=== PATIENT | male | born 1965 ===

== ENCOUNTER 2021-06-17 12:23 | Emergency (ER) | payer MEDICAID ==
[~2021-06-17] VITALS: Ht 172.7 cm; Wt 59.1 kg
[2021-06-17 13:23] LABS: BASOPHILS % (AUTO) 0.4 % (0-1); EOSINOPHILS % (AUTO) 0 % (0-6); HEMATOCRIT 49.5 % (42.0-52.0); HEMOGLOBIN 16.7 g/dl (14.0-17.9); LYMPHOCYTES # (AUTO) 0.5 X10'3 (1.1-4.8); LYMPHOCYTES % (AUTO) 4.9 % (21-51); MEAN CORPUSCULAR HEMOGLOBIN 33.3 PG (27.0-31.0); MEAN CORPUSCULAR HGB CONC 33.7 g/dL (33.0-36.5); MEAN PLATELET VOLUME 7.1 FL (7.4-10.4); MONOCYTES # (AUTO) 0.6 X10'3 (0-0.9); MONOCYTES % (AUTO) 5.2 % (2-12); NEUTROPHILS # (AUTO) 9.5 X10'3 (1.8-7.7); NEUTROPHILS % (AUTO) 89.5 % (42-75); PLATELET COUNT 397 X10'3 (140-440); RED CELL DISTRIBUTION WIDTH 13.5 % (11.5-14.5); WHITE BLOOD COUNT 10.6 X10'3 (4.5-11.0)
[2021-06-17 13:34] LABS: ALANINE AMINOTRANSFERASE 38 U/L (12-78); ALBUMIN 4.4 G/DL (3.4-5.0); ALKALINE PHOSPHATASE 107 IU/L (46-116); ANION GAP 14 (8-16); ASPARTATE AMINO TRANSFERASE 25 U/L (10-37); BILIRUBIN,TOTAL 1.9 MG/DL (0.1-1.0); BLOOD UREA NITROGEN 17 MG/DL (7-18); BUN/CREATININE RATIO 15.9 (5.4-32.0); CALCIUM 9.2 MG/DL (8.5-10.1); CHLORIDE 102 MMOL/L (99-107); CREATININE 1.07 MG/DL (0.60-1.10); GLUCOSE 130 MG/DL (70-104); LIPASE < 50 U/L (73-393); POTASSIUM 4.1 MMOL/L (3.5-5.1); SODIUM 141 MMOL/L (135-145); TOTAL CARBON DIOXIDE 25.2 MMOL/L (24-32); TOTAL PROTEIN 8.7 G/DL (6.4-8.2); eGFR 71 ML/MIN
[2021-06-17 15:24] LABS: CLARITY,URINE CLOUDY (Clear); COLOR,URINE BROWN (Yellow); GLUCOSE, URINE NEGATIVE (Neg); KETONES,URINE 40 mg/dl (Neg); LEUKOCYTE ESTERASE ,URINE NEGATIVE (Neg); NITRITES, URINE NEGATIVE (Neg); OCCULT BLOOD,URINE LARGE (Neg); PH,URINE 5.5 (4.8-8.0); PROTEIN,URINE 30 mg/dl (Neg); UA COLLECTION TYPE CLN CATCH MIDSTREAM
[2021-06-17 15:26] LABS: RBC,URINE TNTC /HPF (0-2); WBC,URINE 0-4 /HPF (0-4)
[2021-06-17 15:27] LABS: BACTERIA,URINE FEW /HPF (Neg); SQUAMOUS EPITHELIAL CELL,UR NONE SEEN /LPF (FEW)
[2021-06-17 15:35] LABS: MUCUS STRANDS MODERATE /LPF (Neg)
[2021-06-17] MEDS ORDERED: HYDR-3965 PO (18:06)
[2021-06-17] MEDS ORDERED: FLO0.4C PO (18:06)
[2021-06-17] MEDS ORDERED: ONDA4TAB6 PO (18:06)
[2021-06-17] MEDS ORDERED: ketorolac trometh inj. 60 MG/2 ML VIAL IM ONE (18:10)
[2021-06-17 18:27] VITALS: BP 130/75
== END 2021-06-17 18:29 | disposition home or self-care (01) ==
LOC: ER 12:24
DX: N20.0 Calculus of kidney (principal)
CPT/HCPCS: 36415; 74176; 80053; 81001; 83690; 85025; 99284